=== PATIENT | male | born 1995 | race American Indian/Alaskan Native ===

== ENCOUNTER 2020-05-30 08:31 | Inpatient (IN) | payer OTHER ==
[2020-05-30] MEDS ORDERED: MORPHINE 2 MG/1 ML INJ IV ONE (08:52)
[2020-05-30] MEDS ORDERED: ONDANSETRON 4 MG/2 ML INJ IV ONE (08:52)
[2020-05-30] MEDS ORDERED: SODIUM CHLORIDE 0.9% 1000 ML 1,000 ML IV ONE (08:52)
[2020-05-30] MEDS ORDERED: PANTOPRAZOLE 40 MG INJ IV ONE (08:52)
[2020-05-30] MEDS ORDERED: PIPERACIL/TAZOBACTA 4.5/NS 100 4.5 GM/100 ML VIAL IV ONE (08:53)
[2020-05-30 08:56] LABS: Basophils % (Auto) 0.1 % (0.0-1.8); Eosinophils % (Auto) 0.2 % (0.0-4.3); Hematocrit 41.4 % (35.5-45.6); Hemoglobin 13.9 gm/dl (11.8-15.2); Lymphocytes # (Auto) 1.1 K/mm3 (1.2-5.4); Lymphocytes % (Auto) 10.9 % (13.4-35.0); Mean Corpuscular HGB Conc 34 % (32-34); Mean Corpuscular Volume 82 fl (84-94); Monocytes # (Auto) 0.8 K/mm3 (0.0-0.8); Monocytes % (Auto) 7.9 % (0.0-7.3); Platelet Count 201 K/mm3 (140-440); Red Blood Count 5.04 M/mm3 (3.65-5.03); Red Cell Distribution Width 13.4 % (13.2-15.2)
[2020-05-30 09:08] LABS: Alanine Aminotransferase 10 units/L (7-56); Albumin 4.4 g/dL (3.9-5); BUN/Creatinine Ratio 14; Blood Urea Nitrogen 14 mg/dL (9-20); Calcium 9.8 mg/dL (8.4-10.2); Hemolysis Index 5
[2020-05-30 09:25] LABS: INR 1.05 (0.87-1.13)
[2020-05-30 09:26] LABS: Partial Thromboplastin Time 30.9 Sec. (24.2-36.6)
--- NOTE | 2020-05-30 10:32 | XRay Report ---
CHEST 1 VIEW 10:22 AM INDICATION / CLINICAL INFORMATION: Chest pain. COMPARISON: None available. FINDINGS: SUPPORT DEVICES: None. HEART / MEDIASTINUM: The heart size and pulmonary vasculature are normal. The aorta is normal in brianda jamie. LUNGS / PLEURA: No significant pulmonary or pleural abnormality. No pneumothorax. ADDITIONAL FINDINGS: No significant additional findings. IMPRESSION: No acute findings. Signer Name: David Mcmahon MD Signed: 05/30/2020 10:28 AM Workstation Name: [id number]
--- NOTE | 2020-05-30 10:37 | Cat Scan Report ---
CT OF THE ABDOMEN AND PELVIS WITH INTRAVENOUS CONTRAST INDICATION / CLINICAL INFORMATION: Right lower abdominal pain for one day. TECHNIQUE: The patient received 100 cc Omnipaque [address] scans at this location are performed using CT dose reduction for ALARA by means of automated exposure control. COMPARISON: None available. FINDINGS: ABDOMEN: The liver, spleen, gallbladder, bile ducts, pancreas, adrenal glands, and kidneys demonstrat e no significant abnormality. There is no evidence of bowel obstruction or free air. No adenopathy is identified. The lung bases are clear. PELVIS: The appendix is dilated and thick-walled measuring approximately 1.5 cm transverse. The appen israel is fluid-filled. There are multiple calcified fecaliths in the appendiceal lumen, the largest of which measures approximately 9 mm. There is moderate inflammation in the periappendiceal fat. I see n o evidence of abscess, bowel obstruction or extraluminal gas. The distal ureters, urinary bladder and prostate gland are normal. There is no evidence of diverticul itis. I do not identify a hernia. No acute osseous abnormality is seen. IMPRESSION: Acute appendicitis with multiple fecaliths. No evidence of abscess or other complication. Signer Name: David Mcmahon MD Signed: 05/30/2020 10:33 AM Workstation Name: [id number]
--- NOTE | 2020-05-30 11:16 | History and Physical Report ---
History of Present Illness Date of examination: 05/30/20 Date of admission: 05/30/20 Chief complaint: Abdominal pain for the last 2 days History of present illness: A 24-year-old [id number] male patient with no significant past medical history, not on any medications Presented to the emergency room with abdominal pain mainly around the umbilicus and sometimes right lower quadrant of 2 days duration, patient denies any fever or chills Denies nausea vomiting, denies hematemesis melena however reports loss of appetite, and patient did not eat for the last 2 days Initial work-up in the emergency room with CT abdomen and pelvis; findings consistent with acute appendicitis. Patient is afebrile. Hemodynamically stable ER physician consulted surgeon, Dr. Barros evaluated the patient, planning appendectomy Past History Past Medical History: No medical history Past Surgical History: No surgical history Social history: denies: smoking, alcohol abuse Family history: no significant family history Medications and Allergies Allergies Allergy/AdvReac Type Severity Reaction Status Date / Time No Known Allergies Allergy Verified 05/30/20 11:18 Review of Systems Constitutional: weakness, no weight loss, no weight gain, no fever, no chills Ears, nose, mouth and throat: no nasal congestion, no nasal discharge Cardiovascular: no chest pain, no orthopnea Respiratory: no cough, no shortness of breath Gastrointestinal: abdominal pain, no nausea, no vomiting, no diarrhea Genitourinary Male: no hematuria, no flank pain Musculoskeletal: no myalgias, no arthritis Integumentary: no rash, no lesions Neurological: no seizures, no syncope Psychiatric: no anxiety, no depression Endocrine: no cold intolerance, no heat intolerance Hematologic/Lymphatic: no easy bruising, no easy bleeding Allergic/Immunologic: no urticaria, no allergic rhinitis Exam - Constitutional Vitals: Temp Pulse Resp BP Pulse Ox 97.8 F 71 18 121/65 100 05/30/20 08:34 05/30/20 10:35 05/30/20 10:35 05/30/20 10:35 05/30/20 10:35 General appearance: Present: mild distress, well-nourished - EENT Eyes: Present: PERRL, EOM intact - Neck Neck: Present: supple, normal ROM - Respiratory Respiratory effort: normal Respiratory: bilateral: diminished, negative: rales, rhonchi, wheezing - Cardiovascular Rhythm: regular Heart Sounds: Present: S1 & S2 - Extremities Extremities: no ischemia, No edema - Abdominal General gastrointestinal: Present: soft, tender (No guarding no rigidity), normal bowel sounds - Integumentary Integumentary: Present: clear, warm - Musculoskeletal Musculoskeletal: strength equal bilaterally - Psychiatric Psychiatric: appropriate mood/affect, cooperative - Neurologic Neurologic: CNII-XII intact, moves all extremities Results - Labs CBC & Chem 7: 05/30/20 08:38 05/30/20 08:38 Labs: Abnormal lab results 05/30/20 05/30/20 Range/Units 08:38 08:38 RBC 5.04 H (3.65-5.03) M/mm3 MCV 82 L (84-94) fl Lymph % (Auto) 10.9 L (13.4-35.0) % [place] % (Auto) 7.9 H (0.0-7.3) % Lymph # 1.1 L (1.2-5.4) K/mm3 Seg Neutrophils % 80.9 H (40.0-70.0) % Seg Neutrophils # 8.3 H (1.8-7.7) K/mm3 Glucose 107 H (75-100) mg/dL Assessment and Plan --Acute appendicitis; N.p.o. status, IV fluids, IV antibiotics IV Protonix, surgery consulted Possible appendectomy --Abdominal pain; Associated with nausea vomiting CT abdomen pelvis; findings consistent with acute appendicitis Pain medications, antiemetics, possible appendectomy --DVT prophylaxis; SCDs, no pharmacologic anticoagulation in view of Pending surgical procedure I used language line to get patient's medical history, explained his condition And the treatment plan, answered all his questions We will closely monitor the patient and adjust management as needed
[2020-05-30] MEDS ORDERED: MORPHINE 2 MG/1 ML INJ IV PRN (11:17)
[2020-05-30] MEDS ORDERED: GLYCOPYRROLATE 0.4 MG/2 ML INJ ONE (11:29)
[2020-05-30] MEDS ORDERED: dexAMETHasone 20 MG/5 ML VIAL ONE (11:29)
[2020-05-30] MEDS ORDERED: ROCURONIUM 50 MG/5 ML INJ IV ONE (11:29)
[2020-05-30] MEDS ORDERED: NEOSTIGMINE 10MG/10 ML INJ MDV ONE (11:29)
[2020-05-30] MEDS ORDERED: ONDANSETRON 4 MG/2 ML INJ ONE (11:29)
[2020-05-30] MEDS ORDERED: SUCCINYLCHOLINE CHLORIDE 200 MG/10 ML INJ MDV ONE (11:29)
[2020-05-30] MEDS ORDERED: PHENYLEPHRINE/NS 1,000 MCG/10 ML SYRINGE (OR USE) IV ONE (11:29)
[2020-05-30] MEDS ORDERED: LIDOCAINE MPF (2%) 20 MG/1 ML VIAL 5 ML ONE (11:29)
[2020-05-30] MEDS ORDERED: fentaNYL 100 MCG/2 ML INJ ONE (11:30)
[2020-05-30] MEDS ORDERED: propofoL 200 MG/20 ML VIAL IV ONE (11:30)
--- NOTE | 2020-05-30 11:40 | Emergency Department Report ---
ED Abdominal Pain HPI - General Chief Complaint: Abdominal Pain Stated Complaint: ABD PAIN Time Seen by Provider: 05/30/20 08:52 Source: patient, family Mode of arrival: Ambulatory Limitations: No Limitations - History of Present Illness Initial Comments: This is a 24-year old man who presented to the emergency department with diffuse abdominal pain of at least 2 days duration. History was somewhat limited due to language barrier. The patient appeared to have an acute abdomen so he was immediately stratified to emergency CT and potential preoperative evaluation. MD Complaint: abdominal pain -: Gradual Location: diffuse Severity: moderate, severe Severity scale (0 -10): 7 Quality: aching Consistency: constant Improves With: nothing Associated Symptoms: other (Limited) - Related Data Allergies Allergy/AdvReac Type Severity Reaction Status Date / Time No Known Allergies Allergy Verified 05/30/20 11:18 ED Review of Systems ROS: Stated complaint: ABD PAIN Other details as noted in HPI Comment: Unobtainable due to pts medical conditions ED Past Medical Hx - Past Medical History Previous Medical History?: No - Surgical History Past Surgical History?: No - Social History Smoking Status: Never Smoker Substance Use Type: None ED Physical Exam - General Limitations: Language Barrier General appearance: alert, in no apparent distress, other (Lying in the left lateral decubitus position and poorly cooperative with history and physical examination.) - Head Head exam: Present: atraumatic, normocephalic - Eye Eye exam: Present: normal appearance. Absent: scleral icterus - ENT ENT exam: Present: mucous membranes moist - Neck Neck exam: Present: normal inspection. Absent: meningismus - Respiratory Respiratory exam: Present: normal lung sounds bilaterally. Absent: respiratory distress - Cardiovascular Cardiovascular Exam: Present: regular rate, normal rhythm. Absent: systolic murmur, diastolic murmur, rubs, gallop - GI/Abdominal GI/Abdominal exam: Present: soft, distended (Slightly), tenderness (Diffusely), guarding (Present), normal bowel sounds. Absent: rebound (Not obvious) - Rectal Rectal exam: Present: deferred - Extremities Exam Extremities exam: Present: normal inspection - Back Exam Back exam: Present: normal inspection - Neurological Exam Neurological exam: Present: alert, CN II-XII intact (As testable). Absent: motor sensory deficit - Psychiatric Psychiatric exam: Present: anxious, flat affect - Skin Skin exam: Present: warm, dry, intact, normal color. Absent: rash ED Course Vital Signs 05/30/20 05/30/20 05/30/20 08:34 09:32 09:33 Temperature 97.8 F Pulse Rate 89 75 Respiratory 20 18 18 Rate Blood Pressure 113/78 Blood Pressure 119/54 [Left] O2 Sat by Pulse 100 99 Oximetry 05/30/20 05/30/20 10:35 11:39 Temperature 98.6 F Pulse Rate 71 68 Respiratory 18 18 Rate Blood Pressure Blood Pressure 121/65 112/57 [Left] O2 Sat by Pulse 100 100 Oximetry - Reevaluation(s) Reevaluation #1: Patient was given IV fluids and empiric antibiotics. Surgical database was ordered and reviewed. CT showed appendicitis with the appendix quite large fluid-filled/air-fluid level, transverse diameter 1.7, periappendiceal inflammation without rupture. The surgeon was notified. Quite expeditiously took the patient to the operating room. Hospitalist to admit. 05/30/20 11:41 ED Medical Decision Making - Lab Data Result diagrams: 05/30/20 08:38 05/30/20 08:38 Laboratory Results - last 24 hr 05/30/20 05/30/20 05/30/20 08:38 08:38 09:02 WBC 10.2 RBC 5.04 H Hgb 13.9 Hct 41.4 MCV 82 L MCH 28 MCHC 34 RDW 13.4 Plt Count 201 Lymph % (Auto) 10.9 L [place] % (Auto) 7.9 H Eos % (Auto) 0.2 Baso % (Auto) 0.1 Lymph # 1.1 L [place] # 0.8 Eos # 0.0 Baso # 0.0 Seg Neutrophils % 80.9 H Seg Neutrophils # 8.3 H PT INR APTT Sodium 140 Potassium 3.8 Chloride 103.9 Carbon Dioxide 23 Anion Gap 17 BUN 14 Creatinine 1.0 Estimated GFR > 60 BUN/Creatinine Ratio 14 Glucose 107 H Calcium 9.8 Total Bilirubin 0.60 AST 19 ALT 10 Alkaline Phosphatase 58 Total Protein 7.5 Albumin 4.4 Albumin/Globulin Ratio 1.4 Lipase 17 Blood Type O POSITIVE Antibody Screen Negative 05/30/20 09:03 WBC RBC Hgb Hct MCV MCH MCHC RDW Plt Count Lymph % (Auto) [place] % (Auto) Eos % (Auto) Baso % (Auto) Lymph # [place] # Eos # Baso # Seg Neutrophils % Seg Neutrophils # PT 13.8 INR 1.05 APTT 30.9 Sodium Potassium Chloride Carbon Dioxide Anion Gap BUN Creatinine Estimated GFR BUN/Creatinine Ratio Glucose Calcium Total Bilirubin AST ALT Alkaline Phosphatase Total Protein Albumin Albumin/Globulin Ratio Lipase Blood Type Antibody Screen - Radiology Data Radiology results: report reviewed, image reviewed interpreted by me: Chest x-ray no acute process FINDINGS: ABDOMEN: The liver, spleen, gallbladder, bile ducts, pancreas, adrenal glands, and kidneys demonstrate no significant abnormality. There is no evidence of bowel obstruction or free air. No adenopathy is identified. The lung bases are clear. PELVIS: The appendix is dilated and thick-walled measuring approximately 1.5 cm transverse. The appendix is fluid-filled. There are multiple calcified fecaliths in the appendiceal lumen, the largest of which measures approximately 9 mm. There is moderate inflammation in the periappendiceal fat. I see no evidence of abscess, bowel obstruction or extraluminal gas. The distal ureters, urinary bladder and prostate gland are normal. There is no evidence of diverticulitis. I do not identify a hernia. No acute osseous abnormality is seen. IMPRESSION: Acute appendicitis with multiple fecaliths. No evidence of abscess or other complication. Critical care attestation.: If time is entered above; I have spent that time in minutes in the direct care of this critically ill patient, excluding procedure time. ED Disposition Clinical Impression: Acute appendicitis Qualifiers: Acute appendicitis type: with localized peritonitis Appendicitis gangrene presence: unspecified whether gangrene present Appendicitis perforation presence: without perforation Appendicitis abscess presence: unspecified whether abscess present Qualified Code(s): K35.30 - Acute appendicitis with localized peritonitis, without perforation or gangrene Disposition: OP ADMIT IP TO THIS HOSP Is pt being admited?: Yes Does the pt Need Aspirin: No Condition: Stable Time of Disposition: 13:12
--- NOTE | 2020-05-30 11:41 | Consultation ---
History of Present Illness Consult date: 05/30/20 Reason for consult: abdominal pain Requesting physician: WARREN CANALES Chief complaint: abdominal pain x 2 days - History of present illness History of present illness: 4-year-old male, otherwise healthy, presents to the emergency department with a 2-day history of abdominal pain. CT scan shows evidence consistent with acute appendicitis. General surgery was consulted. Patient reports that he began to have periumbilical pain about 2 days ago that gradually worsened. Denies any fevers, chills, nausea, vomiting. His appetite has decreased. His last meal was 2 days ago. Past History Past Medical History: No medical history Past Surgical History: No surgical history Social history: other (He occasionally drinks beer). denies: smoking Family history: no significant family history Medications and Allergies Allergies Allergy/AdvReac Type Severity Reaction Status Date / Time No Known Allergies Allergy Verified 05/30/20 11:18 Active Meds: Active Medications Piperacillin Sod/Tazobactam Sod (Zosyn/Ns 4.5gm/100ml) 4.5 gm in 100 mls @ 200 mls/hr IV Q8H RAMIRO; Protocol Sodium Chloride (Nacl 0.9% 1000 Ml) 1,000 mls @ 100 mls/hr IV DIRECT RAMIRO Morphine Sulfate (Morphine) 2 mg IV Q4H PRN PRN Reason: Pain, Moderate (4-6) Pantoprazole Sodium (Protonix) 40 mg IV QDAY RAMIRO Review of Systems - Constitutional no fever, no chills, no chronic pain - Cardiovascular no chest pain, no shortness of breath - Respiratory no cough - Gastrointestinal abdominal pain, loss of appetite, no nausea, no vomiting - Genitourinary no dysuria - Muskuloskeletal no low back pain - Integumentary no rash, no sores, no wounds Exam Vital Signs Temp Pulse Resp BP Pulse Ox 97.8 F 89 20 113/78 100 05/30/20 08:34 05/30/20 08:34 05/30/20 08:34 05/30/20 08:34 05/30/20 08:34 - General physical appearance Positive: well developed, well nourished, no distress, no pain, other (Pleasant, Yoruba speaking young man. Does not appear ill.) - Eyes Positive: normal occular movement - Respiratory Positive: normal expansion, normal respiratory effort, clear to auscultation - Cardiovascular Rhythm: regular - Abdomen Abdomen: Present: soft, tender (Significant pain in the right lower quadrant. No significant tenderness elsewhere in the abdomen.). Absent: distended, g uarding, rigid, wound, surgical scars - Integumentary no rash, no growths, no abnormal pigmentation - Neurologic Neurologic: alert and oriented to time, place and person, motor strength and sensation are grossly intact - Psychiatric Psychiatric: appropriate mood/affect, intact judgment & insight, cooperative Results - Labs 05/30/20 08:38 05/30/20 08:38 Abnormal lab results 05/30/20 05/30/20 Range/Units 08:38 08:38 RBC 5.04 H (3.65-5.03) M/mm3 MCV 82 L (84-94) fl Lymph % (Auto) 10.9 L (13.4-35.0) % [place] % (Auto) 7.9 H (0.0-7.3) % Lymph # 1.1 L (1.2-5.4) K/mm3 Seg Neutrophils % 80.9 H (40.0-70.0) % Seg Neutrophils # 8.3 H (1.8-7.7) K/mm3 Glucose 107 H (75-100) mg/dL Diabetes panel 05/30/20 Range/Units 08:38 Sodium 140 (137-145) mmol/L Potassium 3.8 (3.6-5.0) mmol/L Chloride 103.9 (98-107) mmol/L Carbon Dioxide 23 (22-30) mmol/L BUN 14 (9-20) mg/dL Creatinine 1.0 (0.8-1.3) mg/dL Glucose 107 H (75-100) mg/dL Calcium 9.8 (8.4-10.2) mg/dL AST 19 (5-40) units/L ALT 10 (7-56) units/L Alkaline Phosphatase 58 (35-129) units/L Total Protein 7.5 (6.3-8.2) g/dL Albumin 4.4 (3.9-5) g/dL Calcium panel 05/30/20 Range/Units 08:38 Calcium 9.8 (8.4-10.2) mg/dL Albumin 4.4 (3.9-5) g/dL Pituitary panel 05/30/20 Range/Units 08:38 Sodium 140 (137-145) mmol/L Potassium 3.8 (3.6-5.0) mmol/L Chloride 103.9 (98-107) mmol/L Carbon Dioxide 23 (22-30) mmol/L BUN 14 (9-20) mg/dL Creatinine 1.0 (0.8-1.3) mg/dL Glucose 107 H (75-100) mg/dL Calcium 9.8 (8.4-10.2) mg/dL Adrenal panel 05/30/20 Range/Units 08:38 Sodium 140 (137-145) mmol/L Potassium 3.8 (3.6-5.0) mmol/L Chloride 103.9 (98-107) mmol/L Carbon Dioxide 23 (22-30) mmol/L BUN 14 (9-20) mg/dL Creatinine 1.0 (0.8-1.3) mg/dL Glucose 107 H (75-100) mg/dL Calcium 9.8 (8.4-10.2) mg/dL Total Bilirubin 0.60 (0.1-1.2) mg/dL AST 19 (5-40) units/L ALT 10 (7-56) units/L Alkaline Phosphatase 58 (35-129) units/L Total Protein 7.5 (6.3-8.2) g/dL Albumin 4.4 (3.9-5) g/dL - Imaging CT scan - abdomen: report reviewed, image reviewed CT scan - pelvis: report reviewed, image reviewed Assessment and Plan - Patient Problems (1) Appendicitis Current Visit: Yes Status: Acute Qualifiers: Appendicitis type: acute appendicitis Acute appendicitis type: with localized peritonitis Appendicitis gangrene presence: unspecified whether gangrene present Appendicitis perforation presence: unspecified whether perforation present Appendicitis abscess presence: unspecified whether abscess present Qualified Code(s): K35.30 - Acute appendicitis with localized peritonitis, without perforation or gangrene Plan to address problem: Pt stable. We communicated via 2 separate phone interpreters-#[id number]. We used 2 as the patient wanted to speak with his brother in the middle of our conversation. By history, exam, CT scan, patient appears to have acute appendicitis. We discussed surgery versus medical therapy. We discussed pros and cons for both. At this point, he called his brother to discuss the situation with him. He reports that the brother advised him to move forward with surgery. At this point, I went into more details on the procedure, risk, benefits. All questions were answered. Consent was obtained with the assistance of the phone assistant purchasing manager. We will proceed to the operating room today. Time=45min
--- NOTE | 2020-05-30 11:43 | Anesthesia Consultation ---
Anesthesia Consult and Med Hx Date of service: 05/30/20 - Airway Anesthetic Teeth Evaluation: Good ROM Head & Neck: Adequate Mental/Hyoid Distance: Adequate Mallampati Class: Class II Intubation Access Assessment: Probably Good - Pre-Operative Health Status ASA Pre-Surgery Classification: ASA1, Emergency Proposed Anesthetic Plan: General - Pulmonary Hx Smoking: No Hx Asthma: No Hx Respiratory Symptoms: No SOB: No COPD: No Home Oxygen Therapy: No Hx Pneumonia: No Hx Sleep Apnea: No - Cardiovascular System Hx Hypertension: No Hx Coronary Artery Disease: No Hx Heart Attack/AMI: No Hx Angina: No Hx Percutaneous Transluminal Coronary Angioplasty (PTCA): No Hx Cardia Arrhythmia: No Hx Pacemaker: No Hx Internal Defibrillator: No Hx Valvular Heart Disease: No Hx Heart Murmur: No Hx Peripheral Vascular Disease: No - Central Nervous System Hx Neuromuscular Disorder: No Hx Seizures: No CVA: No Hx Back Pain: No Hx Psychiatric Problems: No - Gastrointestinal Hx Ulcer: No Hx Gastroesophageal Reflux Disease: No - Endocrine Hx Renal Disease: No Hx End Stage Renal Disease: No Hx Cirrhosis: No Hx Liver Disease: No Hx Insulin Dependent Diabetes: No Hx Non-Insulin Dependent Diabetes: No Hx Thyroid Disease: No Hx Hypothyroidism: No Hx Hyperthyroidism: No - Hematic Hx Anemia: No Hx Sickle Cell Disease: No - Other Systems Hx Alcohol Use: Yes Hx Substance Use: No Hx Cancer: No Hx Obesity: No
--- NOTE | 2020-05-30 11:46 | Anesthesia Day of Surgery ---
Anesthesia Day of Surgery - Day of Surgery Patient Examined: Yes Patient H&P Reviewed: Yes Patient is NPO: Yes
[2020-05-30] MEDS ORDERED: LIDOCAINE (1%) 10 MG/1 ML VIAL 20 ML MDV ONE (11:52)
[2020-05-30] MEDS ORDERED: BUPIVACAINE-EPINEPHRINE/PF 0.5%-1:200,000 (30 ML) VIAL INFILTRATI ONE ×2 (11:52→12:38)
[2020-05-30] MEDS ORDERED: MIDAZOLAM 2 MG/2 ML INJ ONE (12:01)
[2020-05-30] MEDS ORDERED: HYDROmorphone 1 MG/1 ML INJ ONE ×2 (12:22→13:39)
[2020-05-30] MEDS ORDERED: SODIUM CHLORIDE 0.9% IRRIG SOLN 2000 ML IR ONE (12:39)
[2020-05-30] MEDS ORDERED: LIDOCAINE (1%) 10 MG/1 ML VIAL 20 ML MDV INFILTRATI ONE (12:39)
[2020-05-30] MEDS ORDERED: WATER FOR IRRIG STERILE 1,500 ML BOTTLE IR ONE (12:40)
[2020-05-30] MEDS ORDERED: KETOROLAC 30 MG/1 ML INJ ONE (12:58)
[2020-05-30] MEDS ORDERED: SUGAMMADEX SODIUM 200 MG/2 ML VIAL IV ONE (13:05)
[2020-05-30] MEDS ORDERED: oxyCODONE /ACETAMINOPHEN 5-325MG TAB PO PRN (13:14)
--- NOTE | 2020-05-30 13:21 | Post Operative Note ---
Date of procedure: 05/30/20 (dictation:[id number]) Pre-op diagnosis: acute appendicitis Post-op diagnosis: other (acute suppurative appendicitis) Findings: thickened appendix with fibropurulent tissue surrounding it. There was a small collection of greenish fluid adjacent to it. Procedure: lap appy IVF 1200cc EBL min Anesthesia: GETA Surgeon: JUAN POE Estimated blood loss: minimal Pathology: list (appendix) Specimen disposition: to lab Condition: stable Disposition: PACU
[2020-05-30] MEDS ORDERED: ONDANSETRON 4 MG/2 ML INJ IV PRN (13:37)
--- NOTE | 2020-05-30 13:40 | Post Anesthesia Evaluation ---
- Post Anesthesia Evaluation Patient Participated: Yes Airway Patent: Yes Stable Respiratory Function: Yes Nausea/Vomiting: No Temp > 96.8F: Yes Pain Manageable: Yes Adequeate Hydration: Yes Anesthesia Complications: No Block Receding Appropriately: Not Applicable Patient on Ventilator: No
[2020-05-30] MEDS: HYDROmorphone 1 MG/1 ML INJ IV PRN ×2 (13:41→13:45)
--- NOTE | 2020-05-30 13:47 | Operative Report ---
PREOPERATIVE DIAGNOSIS: Acute appendicitis. POSTOPERATIVE DIAGNOSIS: Acute suppurative appendicitis. ATTENDING PHYSICIAN: Dieudonne Barros MD ANESTHESIA: General. PROCEDURE: Laparoscopic appendectomy. ESTIMATED BLOOD LOSS: Minimal. FLUIDS: 1200 mL. FINDINGS: Thickened appendix with inflammatory changes and fibropurulent material around the appendix. There is a small amount of greenish fluid lateral to the appendix along the gutter. SPECIMEN: Appendix. DRAINS: None. COMPLICATIONS: None. DISPOSITION: Stable, transferred to Recovery Room. INDICATIONS: This is a 24-year-old male, who presented with a 2-day history of abdominal pain that began in the periumbilical region and localized to the right side of the abdomen. CT scan showed evidence consistent with acute appendicitis. The patient is assessed to be in need for laparoscopic appendectomy. Procedure, risks, and benefits were explained to the patient. Risks include but were not limited to infection, bleeding, pain, injury to surrounding structures, possible need for further procedures in the future. This was done via the assistance of a phone product management intern. The patient understood and consented to procedure. OPERATIVE NOTE: The patient was brought to the operating room and placed on the table in supine position. After adequate general anesthesia was established, Wilcox catheter was placed. SCDs were in place. Antibiotics have been given. Sterile prep and drape was performed. Time-out was done. I began by placing a Veress needle in left upper quadrant. We were able to insufflate on the first attempt. I placed a 5 mm port in the left lower quadrant using the Optiview technique. The tissue was very strong. It was a bit difficult to get the port in, but we were able to get in safely. I saw no injury to the underlying structures. There was no injury underneath the Veress needle. Veress needle was removed. Under direct vision, a 5 mm port was placed at the infraumbilical position and then a 12 mm port in the suprapubic position, both in the midline. Both of these ports were difficult to get in due to the strength of the tissue. We identified the appendix immediately. It was curled up and adhered together. We gently broke up the adhesions. I divided the mesoappendix with the LigaSure device all the way down to the base. Once we cleared off the base, we used a 60 mm laparoscopic stapler with a blue load to divide the appendiceal base. The staple line was flushed and hemostatic with the cecum. There was some tissue adjacent, which was probably some adjacent mesoappendiceal tissue that had a very slight ooze. We cauterized it with the LigaSure device and as a precaution, I placed Surgicel in that area and held pressure. It was a very small area. Therefore, I was not very concerned, we had thoroughly washed out the area, suctioned it out. Everything looked very good and hemostatic. We saw no other concerns. Specimen was placed in the EndoCatch bag and then removed from the 12 mm port site. We had to stretch out the fascia slightly. We then closed the fascia with a Jerry-Jem fascial closure device using a 2-0 Prolene stitch. We had a very nice closure that was air-tight. We then desufflated the abdomen, removed the ports. Additional local was injected into the port sites. 4-0 Monocryl subcuticular stitches were placed in the skin. Skin was cleaned and dried. Dermabond was placed. Wilcox catheter was removed. The patient tolerated the procedure well. There were no complications. All counts were correct at the end of the case. JOB# [id number] BLANCA/MIKE JERONIMO
[2020-05-30] MEDS: PIPERACIL/TAZOBACTA 4.5/NS 100 4.5 GM/100 ML VIAL IV SCH (17:16)
[2020-05-30] MEDS: SODIUM CHLORIDE 0.9% 1000 ML 1,000 ML IV SCH ×2 (17:17→21:16)
[2020-05-31] MEDS: PIPERACIL/TAZOBACTA 4.5/NS 100 4.5 GM/100 ML VIAL IV SCH ×2 (01:15→09:55)
[2020-05-31] MEDS: SODIUM CHLORIDE 0.9% 1000 ML 1,000 ML IV SCH (01:17)
[2020-05-31] MEDS: HYDROmorphone 1 MG/1 ML INJ IV PRN (01:25)
[2020-05-31 02:03] LABS: Bilirubin,Urine NEG (Negative); Blood,Urine NEG (Negative); Color,Urine Yellow (Yellow); Mucus,Urine FEW /HPF; Protein,Urine <15 mg/dL mg/dL (Negative); Urobilinogen,Urine < 2.0 mg/dL (<2.0)
--- NOTE | 2020-05-31 08:43 | Progress Note ---
Assessment and Plan - Patient Problems (1) Appendicitis Current Visit: Yes Status: Acute Qualifiers: Appendicitis type: acute appendicitis Acute appendicitis type: with localized peritonitis Appendicitis gangrene presence: unspecified whether gangrene present Appendicitis perforation presence: unspecified whether perforation present Appendicitis abscess presence: unspecified whether abscess present Qualified Code(s): K35.30 - Acute appendicitis with localized peritonitis, without perforation or gangrene Plan to address problem: Pt stable. s/p lap appy - POD#1. Patient looks and feels much better. Recommendations: 1. Okay to discharge from surgical standpoint 2. Due to the severity of the appendicitis, would recommend 1 week of oral antibiotics. Augmentin would be acceptable. 3. May shower tomorrow. Pat dry wounds 4. Diet as tolerated 5. Follow-up in general surgery clinic in approximately 2 weeks Please call with any questions Subjective Date of service: 05/31/20 Patient Reports: Positive: no new complaints, feels better, pain is less, tolerating a regular diet, other (feels his stomach "turning"). Negative: nausea, vomiting Objective Vital Signs - 12hr 05/30/20 05/30/20 05/31/20 21:41 22:59 06:01 Temperature 97.7 F 97.9 F Pulse Rate 41 L 43 L Respiratory 18 18 Rate Blood Pressure 100/52 105/55 O2 Sat by Pulse 98 100 100 Oximetry 05/31/20 07:41 Temperature 97.9 F Pulse Rate 64 Respiratory 18 Rate Blood Pressure 101/48 O2 Sat by Pulse 100 Oximetry - General physical appearance no distress, no pain, other (looks better) - Respiratory normal expansion, normal respiratory effort - Abdomen soft - Psychiatric oriented to time, oriented to person, oriented to place, speech is normal, m dunnegan intact - Labs 05/30/20 08:38 05/30/20 08:38 Diabetes panel 05/30/20 Range/Units 08:38 Sodium 140 (137-145) mmol/L Potassium 3.8 (3.6-5.0) mmol/L Chloride 103.9 (98-107) mmol/L Carbon Dioxide 23 (22-30) mmol/L BUN 14 (9-20) mg/dL Creatinine 1.0 (0.8-1.3) mg/dL Glucose 107 H (75-100) mg/dL Calcium 9.8 (8.4-10.2) mg/dL AST 19 (5-40) units/L ALT 10 (7-56) units/L Alkaline Phosphatase 58 (35-129) units/L Total Protein 7.5 (6.3-8.2) g/dL Albumin 4.4 (3.9-5) g/dL Calcium panel 05/30/20 Range/Units 08:38 Calcium 9.8 (8.4-10.2) mg/dL Albumin 4.4 (3.9-5) g/dL Pituitary panel 05/30/20 Range/Units 08:38 Sodium 140 (137-145) mmol/L Potassium 3.8 (3.6-5.0) mmol/L Chloride 103.9 (98-107) mmol/L Carbon Dioxide 23 (22-30) mmol/L BUN 14 (9-20) mg/dL Creatinine 1.0 (0.8-1.3) mg/dL Glucose 107 H (75-100) mg/dL Calcium 9.8 (8.4-10.2) mg/dL Adrenal panel 05/30/20 Range/Units 08:38 Sodium 140 (137-145) mmol/L Potassium 3.8 (3.6-5.0) mmol/L Chloride 103.9 (98-107) mmol/L Carbon Dioxide 23 (22-30) mmol/L BUN 14 (9-20) mg/dL Creatinine 1.0 (0.8-1.3) mg/dL Glucose 107 H (75-100) mg/dL Calcium 9.8 (8.4-10.2) mg/dL Total Bilirubin 0.60 (0.1-1.2) mg/dL AST 19 (5-40) units/L ALT 10 (7-56) units/L Alkaline Phosphatase 58 (35-129) units/L Total Protein 7.5 (6.3-8.2) g/dL Albumin 4.4 (3.9-5) g/dL
[2020-05-31] MEDS ORDERED: PANTOPRAZOLE 40 MG INJ IV SCH (10:00)
[2020-05-31 11:32] VITALS: BP 131/62
--- NOTE | 2020-05-31 13:46 | Discharge Summary ---
Providers - Providers Date of Admission: 05/30/20 11:14 Date of discharge: 05/31/20 Attending physician: PETER SANTOS Primary care physician: [employer] Hospitalization Condition: Stable Disposition: [id number] TO HOME OR SELFCARE Time spent for discharge: 32 min Core Measure Documentation - Palliative Care Palliative Care/ Comfort Measures: Not Applicable - Core Measures Any of the following diagnoses?: none Exam - Constitutional Vitals: Temp Pulse Resp BP Pulse Ox 97.8 F 46 L 18 131/62 100 05/31/20 11:10 05/31/20 11:10 05/31/20 11:10 05/31/20 11:10 05/31/20 11:10 Plan Additional Instructions: Oral Augmentin for 1 week. May shower tomorrow. Pat dry wounds. Diet as tolerated. Follow-up in general surgery clinic in approximately 2 weeks. If you have worsening symptoms contact MD or go to emergency room Follow up with: PRIMARY CARE, [Primary Care Provider] - 3-5 Days Prescriptions: Amoxicillin/Potassium Clav [Augmentin 875-125 Tablet] 1 each PO BID #14 tablet oxyCODONE /ACETAMINOPHEN [Percocet 5/325 mg] 1 tab PO Q6H PRN #20 tablet PRN Reason: Pain, Moderate (4-6)
[2020-06-01] MEDS ORDERED: PANTOPRAZOLE 40 MG TAB PO SCH (10:00)
== END 2020-05-31 16:31 | disposition home or self-care (01) | DRG 343 ==
LOC: ED 08:31 → 3A 11:14 → 3B-SURG 12:14
PROVIDERS: ADMIT Internal Medicine; ATTEND Internal Medicine
PROC: 0DTJ4ZZ Resection of Appendix, Percutaneous Endoscopic Approach (ICD-10-PCS; principal; 2020-05-30)
DX: K35.30 Acute appendicitis with localized peritonitis, without perforation or gangrene (principal)
CPT/HCPCS: 36415; 71045; 74177; 80053; 81001; 83690; 85025; 85610; 85730; 86850; 86900; 86901; 88304; 93005; 96365; 96375; G0378; A4217; C9113; J0330; J1100; J1170; J1885; J2250; J2270; J2370; J2405; J2543; J2704; J2710; J3010; J7030; Q9967